=== PATIENT | female | born 1950 | race Caucasian/White ===

== ENCOUNTER 2019-05-21 13:22 | Inpatient (IN) | payer MEDICARE, MEDICAID ==
[~2019-05-21] VITALS: Ht 157.4 cm; Wt 61.2 kg
--- NOTE | 2019-05-21 13:30 | NUR ---
MEDICATIONS REVIEWED WITH PT'S WILLIE. HAD ALL PT'S MEDICATION BOTTLES IN E.D., MED REC UPDATED ACCORDINGLY. PT'S HOME MEDICATIONS, PURSE AND JEWELRY, WITH THE EXCEPTION OF [place], WERE SENT HOME WITH PT'S . VISITING HOURS AND TELEPHONE NUMBER TO UNIT PROVIDED TO .
--- NOTE | 2019-05-21 13:46 | NUR ---
HOSPITALIST NUMBER ONE, , NOTIFIED OF NEW CONSULT FOR MEDICAL MANAGEMENT.
--- NOTE | 2019-05-21 13:48 | NUR ---
MARÍA RAMIREZ a 68 year old F admitted via wheel chair from the EMERGENCY ROOM as a emergency 72 hr. hold admission. Arrived on unit at 1348. ALLERGIES: NKDA. Vital signs are: 97.8-84-18 148/90. 100% ROOM AIR. PT ADMITTED UNDER PINK SLIP. PT DID NOT SIGN ANY ADMISSION PAPERWORK UPON ADMISSION TO THE UNIT, PT EXCEEDINGLY ANXIOUS AND TEARFUL. Admitted under the services of Dr. MIKE HYDEALINA. A search was conducted and hazardous articles were removed. Client was oriented to the unit. EMILY JIMENEZ
[2019-05-21 13:50] VITALS: BP 148/90
[2019-05-21] MEDS ORDERED: VISTARIL25 MG PO (13:52)
[2019-05-21] MEDS ORDERED: CELEXA20 MG PO (13:52)
[2019-05-21] MEDS ORDERED: ZESTRIL10 MG PO (13:53)
[2019-05-21] MEDS ORDERED: LIPITOR10 MG PO (13:54)
[2019-05-21] MEDS ORDERED: ZESTORETIC 20-1 EACH PO (13:54)
[2019-05-21] MEDS ORDERED: SEROQUEL50 MG PO (13:54)
[2019-05-21] MEDS ORDERED: NAMENDA10 MG PO (13:55)
[2019-05-21] MEDS ORDERED: NAMENDA-5 PO (13:55)
[2019-05-21] MEDS ORDERED: REMERON15 M2 PO (13:55)
--- NOTE | 2019-05-21 15:00 | NUR ---
PT IS ALERT AND ORIENTED TO PERSON, PLACE AND YEAR. CONFUSION NOTED. PT STATES IT IS "2019" AND THEN STATES IT IS APRIL. PT TEARFUL AT TIMES THINKING SHE IS MISSING THE FAM HOLIDAY AT HOME WITH HER FAMILY. PT STATES "I HAVE WRAPPED GIFTS ALL OVER MY HOUSE AND I DON'T EVEN REMEMBER WHAT IS IN THEM" REORIENTATION PROVIDED. SHORT TERM AND CARE HOME MEMORY GAPS NOTED. RESPS EASY AND EVEN ON ROOM AIR. MOOD APPEARS DEPRESSED WITH SAD AFFECT. PT VERY QUICKLY BECOMES VERY ANXIOUS AND TEARFUL. SLIGHTY AGITATED AT BEING IN THE HOSPITAL. PT DECLINED TO SIGN ANY ADMISSION PAPERWORK OR COMPLETE MINI MENTAL EXAM D/T ANXIETY AND CRYING. PT NOTED WITH DISORGANIZED THOUGHTS AND FLIGHT OF IDEAS. UNABLE TO COMPLETE A TRAIN OF THOUGHT BEFORE MOVING ONTO THE NEXT SUBJECT. PT STATES "I HAVE ALZHEMIERS SO I DON'T DRIVE ANYMORE". AT TIMES THROUGHOUT ADMISSION PROCESS PT GIVES IRRELEVANT ANSWERS TO QUESTIONS ASKED. PT APPEARS PARANOID AND ANXIOUS, AUDITORY AND VISUAL HALLUCINATIONS QUESTIONABLE PT STATES SHE SEES AND HEARS KIDS LIVING IN HER DAUGHTER'S OLD BEDROOM AND KITCHEN AT HER HOME. PT STATES SHE CALLED THE POLICE ON THESE KIDS LAST NIGHT BECAUSE THEY STEAL FROM HER PURSE AND PLAY OUTSIDE IN THE SUMMER. PT STATES THESE "KIDS" HAVE SET UP FUTONS IN HER DAUGHTER'S TEENAGE BEDROOM AND STATES THE KIDS "GO TO [place] ON SATURDAYS TO HAVE FUN" AND PT STATES "BUT I DON'T KNOW ANYTHING ABOUT THAT". PT THEN BECAME TEARFUL AND STATES "I CAN'T DO THIS ANYMORE. IF I HAVE TO GET AN FRUIT PICKER, I WILL". PT FREQUENTLY LOOKING OVER HER SHOULDER AND OUT INTO THE HALLWAY WITH ANY NOISES HEARD. DURING ADMISSION INTERVIEW IN RESPONSE TO THE QUESTION "DO YOU FEEL ITS WONDERFUL TO BE ALIVE NOW?" PT ANSWERED "NO, BECAUSE I'M ALWAYS FIGHTING WITH THE [employer] CARE TECHNICIAN ABOUT MY PARENTS PHONE. THEY TOOK THEIR PHONE AWAY. ARE YOU GOING TO GIVE ME SOME RICE?" PT'S PARENTS ARE PER . PT FREQUENTLY ASKING IF HER WILLIE CAN COME AND SEE HER, MADE AWARE OF VISTING HOURS. PT THEN ASKS THE SAME QUESTIONS AGAIN A SHORT TIME LATER. NO ACUTE DISTRESS NOTED. PT ORIENTED TO ROOM AND CALL [facility]. AMBULATORY WITH STEADY GAIT. REFER TO [facility] ADMISSION FLOWSHEET FOR FURTHER DOCUMENTATION.
--- NOTE | 2019-05-21 17:07 | NUR ---
FLU VACCINE GIVEN TO RIGHT DELTOID AT THIS TIME, PT AFEBRILE, PT TOLERATED WELL.
--- NOTE | 2019-05-21 18:08 | NUR ---
PT CONFUSED, HAS ASKED STAFF SEVERAL TIMES "HAVE YOU HEARD ANYTHING FROM THE ELEVATOR?" "WHEN IS MY GOING TO COME AND PICK ME UP". REORIENTATION PROVIDED, EFFECTIVE FOR SHORT PERIODS.
[2019-05-21 19:38] VITALS: BP 150/80
--- NOTE | 2019-05-21 19:44 | NUR ---
24 HR chart check completed.
--- NOTE | 2019-05-21 21:07 | NUR ---
P-ANXIETY, SHORT TERM MEMORY DEFICITS, CONFUSION I-PROVIDE EMOTIONAL SUPPORT, ADMINISTER MEDS, MONITOR SLEEP R-PT IS MOSTLY PLEASANT. MAINTAINS GOOD EYE CONTACT. ALERT & ORIENTED X4 BUT DOES HAVE MEMORY GAPS. DID VOICE FEAR OF "MY ALZHEIMERS". INCREASED ANXIETY AT TIMES WHEN DISCUSSING HER . WAS WORRIED IF HE MADE IT HOME OR NOT & FORGOT THAT STAFF HAD ALREADY CALLED & LEFT A MESSAGE. SPOKE FONDLY OF HER FAMILY. HER DID CALL & SPOKE WITH HER TONIGHT. NO SIGNS/SYMPTOMS OF SENSORY DISTURBANCE NOTED. AMBULATES INDEPENDENTLY WITH A STEADY GAIT. ABLE TO MAKE NEEDS KNOWN. ATE SNACK. COMPLIANT WITH MEDICATIONS. P-CONTINUE TO MONITOR & PROVIDE PHYSICAL & EMOTIONAL SUPPORT NEEDED.
[2019-05-22 06:13] LABS: BASO # 0.1 10*3/uL (0.0-0.1); BASO % 0.7 % (0.0-1.0); EOS # 0.2 10*3/uL (0.0-0.4); EOS % 2.4 % (1.0-4.0); HEMATOCRIT 34.9 % (37.0-47.0); HEMOGLOBIN 11.3 g/dl (12.0-16.0); LYMPH % 48.4 % (27.0-41.0); MEAN CELL VOLUME 91.4 fl (81.0-99.0); MEAN CORPUSCULAR HGB 29.6 pg (27.0-31.0); MEAN CORPUSCULAR HGB CONC 32.4 g/dl (33.0-37.0); MEAN PLATELET VOLUME 10.7 fl (9.6-12.3); MONO # 0.7 10*3/uL (0.1-1.0); MONO % 8.4 % (3.0-9.0); NEUT # 3.3 10*3/uL (2.3-7.9); NEUT % 39.9 % (47.0-73.0); PLATELET COUNT AUTOMATED 293 10*3/uL (130-400); RED BLOOD COUNT 3.82 10*6/uL (4.10-5.10); WHITE BLOOD COUNT 8.2 10*3/uL (4.8-10.8)
[2019-05-22 06:29] LABS: ALBUMIN 3.2 gm/dl (3.1-4.5); ALKALINE PHOSPHATASE 148 U/L (45-117); BUN 18 mg/dl (7-24); CHLORIDE 107 mmol/L (98-107); CHOLESTEROL 146 mg/dL (<200); CREATININE 0.92 mg/dL (0.55-1.02); HDL CHOLESTEROL 62 mg/dl (40-60); LDL CHOLESTEROL 74 mg/dL (9-159); POTASSIUM 3.8 mmol/L (3.5-5.1); SGOT/AST 21 IU/L (3-35); SGPT/ALT 28 U/L (12-78); SODIUM 145 mmol/L (136-145); TOTAL PROTEIN 6.5 gm/dL (6.4-8.2); TRIGLYCERIDES 48 mg/dl (<150); VLDL CHOLESTEROL 10 mg/dL (6-40)
[2019-05-22 07:23] LABS: VITAMIN D, 25-HYDROXY 29.4 ng/mL (30-100)
[2019-05-22 07:30] VITALS: BP 112/72
--- NOTE | 2019-05-22 07:33 | NUR ---
PT RESTING QUIETLY IN BED WITH EYES CLOSED, RESPS EASY AND EVEN ON ROOM AIR. MENTAL HEALTH WORKER WILL ASSIST PT TO DINING ROOM FOR BREAKFAST.
--- NOTE | 2019-05-22 07:55 | NUR ---
PHYSICAL THERAPY Screen received as well as orders for PT will follow thank you Ally Mckenzie PT
--- NOTE | 2019-05-22 08:07 | NUR ---
Nursing screen and occupational therapy referral received. Thank you. Jannette Bennett OTR/l
--- NOTE | 2019-05-22 11:42 | NUR ---
AM GROUP PT ATTENDED MORNING GROUP THERAPY AND PARTICIPATED RELUCTANTLY IN THE ART PROJECT. PT IS VERY CONFUSED AND IS UNABLE TO ANSWER QUESTIONS IN PROPER CONTEXT. PT EXHIBITED NO AGITATION OR PARANOIA WHILE IN GROUP.
--- NOTE | 2019-05-22 13:46 | NUR ---
Family meeting held with pt's Gold and this telegraphic typewriter repairer. Pt was also present for a portion of the meeting. Gold provided further history of pt's behaviors. He also confirmed that pt was in the [facility] psychiatric unit approximately one year ago due to paranoid delusions and hallucinations. Discussed discharge plan. Gold stated that his daughter Amelia would be calling this telegraphic typewriter repairer to further discuss. Gold shared that Amelia is wanting pt to discharge to a locked dementia unit in the [facility] to be closer to Amelia. Gold is unsure of this plan but continues to consider that option along with possible referral to [facility].
--- NOTE | 2019-05-22 15:30 | NUR ---
Patient observed ambulating on the [facility] [facility] unit independently, pushing a patient in a wheelchair until nursing asked patient not to do so. [facility] aide reports that patient was independent in all ADLs. OTR will reassess at a later date to establishe consistant performance. Jannette Bennett OTR/L
--- NOTE | 2019-05-22 15:39 | NUR ---
PM GROUP PT ATTENDED AFTERNOON GROUP THERAPY AND PARTICIPATED BY PAINTING A WATERCOLOR AND PLAYING CARDS WITH A PEER. PT IS VERY CONFUSED AND CANNOT RETAIN A SIMPLE DIRECTION GIVEN A SECOND AGO. PT WAS MAKING BIZARRE STATEMENTS THAT HAD NOTHING TO DO WITH THE TOPIC. PT EXHIBITED NO AGITATION AND EXPRESSED NO PARANOID DELUSIONS WHILE IN GROUP.
--- NOTE | 2019-05-22 16:07 | NUR ---
P- CONFUSION, ANXIETY, IRRITABLE AT TIMES UPON REDIRECTION. NO AGGRESSIVE BEHAVIORS. I- ORIENTATION, MOOD AND BEHAVIORS ASSESSED. ASSESSED PT FOR SI/HI, INTENT OR PLAN. ASSESSED PT FOR S/S HALLUCINATIONS, PARANOIA AND/OR DELUSIONS. MEDICATIONS ADMINISTERED PER PHYSICIAN'S ORDERS. ASSISTANCE WITH ADL CARE PROVIDED NEEDED. ENCOURAGED PT TO ATTEND AND PARTICIPATE IN [facility] GROUPS AND ACTIVITIES. R- PT IS ALERT AND ORIENTED TO PERSON AND PLACE. APPROXIMATE TIME. NOT ORIENTED TO SITUATION. CONFUSION NOTED. MEMORY GAPS NOTED. RESPS EASY AND EVEN ON ROOM AIR. MOOD APPEARS DEPRESSED, ANXIOUS, PT TEARFUL AT TIMES, PT BELIEVES HER IS STUCK IN THE ELEVATOR AT TIMES AND OTHER TIMES PT BELIEVES SHE IS HERE TO VISIT HER WHO IS ADMITTED TO THE HOSPITAL. PT BECOMES SLIGHTLY IRRITABLE UPON ATTEMPTS TO REDIRECT. PT STATES SHE WANTS TO GO HOME. NO PHYSICAL AGGRESSION DISPLAYED. REORIENTATION EFFECTIVE FOR ONLY SHORT PERIODS OF TIME. PT DENIES SI/HI, INTENT OR PLAN. PT DENIES HALLUCINATIONS, NO RESPONSE TO INTERNAL STIMULI. NO PARANOIA OR DELUSIONS NOTED. MED COMPLIANT WITHOUT DIFFICULTY. PT IS AMBULATORY WITH STEADY GAIT, AMBULATES AD KARYNA. NO DISTRESS NOTED. P- PLAN TO CONTINUE CURRENT TREATMENT, CONTINUE TO MONITOR MOOD AND BEHAVIORS, PROVIDE APPROPRIATE REORIENTATION, REDIRECTION AND 1:1 NEEDED. CONTINUE TO ENCOURAGE MEDICATION COMPLIANCE WELL GROUP ATTENDANCE AND PARTICIPATION.
--- NOTE | 2019-05-22 18:37 | NUR ---
SHIFT CHART CHECK COMPLETED.
[2019-05-22 19:54] VITALS: BP 135/69
--- NOTE | 2019-05-22 21:30 | NUR ---
Patient alert and oriented x4 but has memory gaps noted. Patient's mood is pleasant and cooperative. No overt s/s of any hallucinations noted at this time. Patient compliant with HS medications without any difficulty. Provided 1:1 for emotional support. Redirected/reoriented when needed. Plan to continue to encourage medication compliance and continue to provide emotional support. Also continue to redirect/reorient when needed/appropriate. Q 15 minute safety checks continued and maintained. See [facility] flowsheet for further documentation.
--- NOTE | 2019-05-23 00:36 | NUR ---
24 HR chart check completed.
--- NOTE | 2019-05-23 05:41 | NUR ---
Patient slept approx. 6 hours throughout shift. Q 15 minute safety checks continued and maintained.
[2019-05-23 07:35] VITALS: BP 120/65
--- NOTE | 2019-05-23 12:06 | NUR ---
AM GROUP/EXERCISE/MUSIC/BINGO PT SHOWERING WHEN GROUP STARTED. MHW ENCOURAGED PT TO ATTEND/PARTICIPATE, BUT PT CHOSE TO REMAIN IN ROOM AT THIS TIME. PT WILL CONTINUE TO BE ENCOURAGED TO ATTEND AND PARTICIPATE IN FUTURE GROUP SESSIONS.
--- NOTE | 2019-05-23 12:07 | NUR ---
DR FIELD ON UNIT TO ASSESS PT, UPDATE PROVIDED.
--- NOTE | 2019-05-23 12:31 | NUR ---
P: PT ISOLATIVE TO ROOM THROUGHOUT THE DAY, WILL COME OUT FOR MEALS ONLY, AND THEN RETURNS TO ROOM. PT MOOD IS DEPRESSED. PT TEARFUL I: PROVIDE EMOTIONAL SUPPORT AND 1:1 FOR PT TO VOICE FEELINGS, ENCOURAGE MED COMPLIANCE AND PROVIDE MED EDUCATION, ENCORUAGE GROUP PARTICIPATION AND SOCIALIZATION. R: PT ALERT TO PERSON, PLACE AND TIME. CONFUSION AND SHORT TERM MEMORY DEFICITS NOTED. PT MED COMPLIANT WITHOUT DIFFICULTY. PT REMAINS TEARFUL AT TIMES. PT CONTINUES TO ISOLATE TO HER ROOM, WILL COME OUT TO THE QUIET ROOM FOR MEALS AND THEN RETURNS TO HER ROOM. PT AMBULAOTRY THROUGHOUT UNIT, GAIT STEADY. PT CONTINENT OF BOWEL AND BLADDER. PT SHOWERED THIS SHIFT P: MONITOR PT BEHAVIORS ON Q15 MIN SAFETY CHECKS, ENCOURAGE MED COMPLIANCE AND PROVIDE MED EDUCATION, ENCOURAGE GROUP PARTICIPATION AND SOCIALIZATION, PROVIDE EMOTIONL SUPPORT AND 1:1 FOR PT TO VOICE FEELINGS.
--- NOTE | 2019-05-23 15:54 | NUR ---
PM GROUP/MUSICAL/CRAFT PT ISOLATIVE TO ROOM AT THIS TIME. PT WILL CONTINUE TO BE ENCOURAGED TO ATTEND AND PARTICIPATE IN FUTURE GROUP SESSIONS.
[2019-05-23 19:44] VITALS: BP 120/61
--- NOTE | 2019-05-23 21:17 | NUR ---
Patient alert and oriented x4 but has memory gaps noted. Patient's mood is pleasant and cooperative. Patient isolative to self in room. Patient said "do see that stink bug on the ceiling,I am afraid it is going to fall on me". This nurse told patient that there was no stink bug seen on the ceiling. Patient then said "it is four rows down from circular vent on ceiling." There was no stink bug seen. Attempted to redirect/reorient patient and patient did finally redirect. Patient compliant with HS medications without any difficulty. Provided 1:1 for emotional support. Redirect/reorient when needed. Plan to continue to encourage medication compliance and continue to provide emotional support. Also continue to redirect/reorient when needed/appropriate. Q 15 minute safety checks continued and maintained. Will continue to monitor moods/behaviors. See [facility] flowsheet for further documentation.
--- NOTE | 2019-05-24 00:23 | NUR ---
24 HR chart check completed.
--- NOTE | 2019-05-24 05:59 | NUR ---
Patient slept approx. 7 hours throughout shift. Q 15 minute safety checks continued and maintained.
[2019-05-24 07:47] VITALS: BP 150/87
--- NOTE | 2019-05-24 10:32 | NUR ---
P: PT ISOLATIVE TO ROOM. PT DEPRESSED, ANXIOUS, IRRITABLE AND HOPELESS/HELPLESS. PT TEARFUL. PT REFUSED BREAKFAST. I: PROVIDE EMOTIONAL SUPPORT AND 1:1 FOR PT TO VOICE FEELINGS, ENCOURAGE MED COMPLIANCE AND PROVIDE MED EDUCATION, ENCOURAGE GROUP PARTICIPATION AND SOCIALIZATION, ENCOURAGE PO INTAKE. R: PT ALERT TO PERSON, PLACE AND TIME, CONFUSION AND SHORT TERM MEMORY DEFICITS NOTED AT TIMES. PT MED COMPLIANT WITHOUT DIFFICULTY, MED EDUCATION PROVIDED. PT AMBULATORY THROUHGOUT UNIT, GAIT STEADY. PT CONTINENT OF BOWEL AND BLADDER. PT CAME TO THE DINING ROOM AND CONSUMED BREAKFAST WITH ENCOURAGEMENT. PT PARTICIPATED IN AM GROUP WITH ENCOURAGEMENT. PT DENIES ANY SUICIDAL THOUGHTS. NO HALLUCINATIONS OR DELUSIONS NOTE. P: MONITOR PT BEHAVIORS ON Q15 MIN SAFETY CHECKS, ENCOURAGE MED COMPLIANCE AND PROVIDE MED EDUCATION, CONTINUE TO ENCOURAGE GROUP PARTICIAPTION AND SOCIALZATION, PROVIDE EMOTIONAL SUPPORT AND 1:1 FOR PT TO VOICE FEELINGS
--- NOTE | 2019-05-24 10:48 | NUR ---
DR. FIELD ON UNIT TO ASSESS PT, UPDATE PROVIDED.
--- NOTE | 2019-05-24 12:38 | NUR ---
AM GROUP/EXERCISE/MUSIC TRIVIA/ART PT ATTENDED AND PARTICIPATED IN ALL GROUP ACTIVITY. PT PLEASANT AND ON TASK WITH NO PARANOIA OR DELUSIONS EXPRESSED AT THIS TIME. PT WILL CONTINUE TO ATTEND AND PARTICIPATE IN FUTURE GROUP SESSIONS.
--- NOTE | 2019-05-24 16:05 | NUR ---
P: PT DELUSIONAL THINKING SHE SAW HER DAUGHTER IN THE BATHROOM HAVING A BOWEL MOVEMENT ALL OVER THE SINK AND TOILET. PT TEARFUL AND CONFUSED AT THIS TIME. I: STAFF PROVIDED EMOTIONAL SUPPORT AND 1:1 FOR PT TO VOICE FEELINGS, PROVIDED LOW STIMULATION ENVIRONMENT FOR PT TO CALM, PROVIDED RE-ORIENTATION AND PRESENTED REALITY R: ALL INTERVENTIONS INEFFECTIVE AT THIS TIME, PT REMAINS TEARFUL. PT UNRECEPTIVE TO PRESENTATION OF REALITY AND RE-ORIENTATION, REMAINS DELUSIONAL, WANDERING IN AND OUT OF OTHERS ROOMS LOOKING FOR HER DAUGHTER. P: MONITOR PT BEHAVIORS ON Q15 MIN SAFETY CHECKS, PROVIDE EMOTIONAL SUPPORT AND 1:1 FOR PT TO VOICE FEELINGS, PROVIDE LOW STIMULATION ENVIRONMENT FOR PT TO CALM.
[2019-05-24 20:00] VITALS: BP 143/86
--- NOTE | 2019-05-24 20:15 | NUR ---
24 HR chart check completed.
--- NOTE | 2019-05-25 02:11 | NUR ---
P-ISOLATIVE, MEMORY DEFICITS I-PROVIDE 1:1 FOR EMOTIONAL SUPPORT, ADMINISTER MEDS, MONITOR SLEEP R-MOOD DEPRESSED & ISOLATIVE TO ROOM. STATED THAT SHE IS "OK. TOO MUCH NOISE IN THE DINING ROOM." ALERT & ORIENTED TO PERSON, PLACE, TIME & STATED THAT SHE IS HERE FOR HER ALZHEIMERS. SHORT TERM MEMORY GAPS NOTED. PT VERBAL & STATED, "IT'S TOUGH FORGETTING THINGS. KNOWING I HAVE ALZHEIMERS". REFUSED SNACK. COMPLIANT WITH MEDS. ABLE TO MAKE NEEDS KNOWN. INDEPENDENT. NO BIZARRE STATEMENTS OR DELUSIONS VOICED. P-CONTINUE TO MONITOR & PROVIDE EMOTIONAL SUPPORT NEEDED.
--- NOTE | 2019-05-25 06:17 | NUR ---
PT HAS SLEPT PAST 2314
[2019-05-25 07:58] VITALS: BP 136/86
[2019-05-25 07:59] VITALS: BP 136/86
--- NOTE | 2019-05-25 08:00 | NUR ---
PT AWAKE, ALERT AND VERBAL. FEEDING SELF BREAKFAST IN DINING ROOM WITH PEERS AT THIS TIME. NO DISTRESS NOTED.
--- NOTE | 2019-05-25 08:15 | NUR ---
Treatment Plan meeting was held this a.m. with Dr. Lyon, JOSELIN Johnson, RN, AT and Technical Communication Teacher in attendance. Plan for discharge at the end of the week. Message received that Patient family has requested Referral to [facility]. Will follow with family today.
--- NOTE | 2019-05-25 08:47 | NUR ---
AND ARASH MEDICAL RESEARCH TECH ON UNIT TO SEE PT AT THIS TIME. UPDATE GIVEN.
--- NOTE | 2019-05-25 11:44 | NUR ---
AM GROUP PT ATTENDED MORNING GROUP THERAPY SITTING AT THE BACK OF THE ROOM WITH EYES CLOSED. PT IS PLEASANTLY CONFUSED. PT CHOSE NOT TO PARTICIPATE. PT EXPRESSED NO PARANOID IDEATIONS OR HALLUCINATIONS WHILE IN GROUP
--- NOTE | 2019-05-25 11:50 | NUR ---
PASRR completed online in [place]. Requires Level two Review. Faxed Supporting Documentation to [facility] .
--- NOTE | 2019-05-25 12:54 | NUR ---
Spoke with pt's daughter Amelia in regards to pt's discharge plan. Per previous conversation with pt's Gold, Amelia is to be involved in the discharge plan. Amelia shared that pt's is struggling with the thought of pt not returning to their home. However, Amelia stated that Gold has been caring for pt for 2 1/2 years and that pt is primarily delusional about Gold, which has caused much stress for both pt and Gold. Amelia is wanting pt to move temporarily to a in [facility]. This will allow Gold time to make plans to move to that vicinity as well with the possibility of pt returning home with Gold with support from Amelia and her family.
--- NOTE | 2019-05-25 12:56 | NUR ---
P- CONFUSED, POOR ST MEMORY, TEARFUL AT TIMES I- ORIENTATION, MOOD AND BEHAVIORS ASSESSED. ASSESSED PT FOR SI/HI, INTENT OR PLAN. ASSESSED PT FOR S/S HALLUCINATIONS, PARANOIA AND/OR DELUSIONS. MEDICATIONS ADMINISTERED PER PHYSICIAN'S ORDERS. ENCOURAGED PT TO ATTEND AND PARTICIPATE IN [facility] GROUPS AND ACTIVITIES. R- PT IS ALERT AND ORIENTED TO PERSON AND PLACE, UNABLE TO STATE DATE, TIME OR SITUATION. CONFUSION NOTED. POOR ST MEMORY NOTED. RESPS EASY AND EVEN ON ROOM AIR. MOOD APPEARS DEPRESSED, AFFECT SAD AT TIMES. SPEECH IS SOFT, COHERENT, ABLE TO MAKE NEEDS KNOWN WITHOUT DIFFICULTY. PT DENIES SI/HI, INTENT OR PLAN. PT DENIES HALLUCINATIONS, NO RESPONSE TO INTERNAL STIMULI NOTED. NO PARANOIA OR DELUSIONS NOTED. PT CONTINUES TO HAVE PERIODS OF TEARFULNESS AT TIMES. PT CRYING THIS MORNING WHILE USING THE BATHROOM, STATED "I'M HAVING DIARRHEA AND IT'S RUNNING DOWN MY LEGS" NO DIARRHEA NOTED. MENTAL HEALTH WORKER REPORTS PT HAD ONE SOFT FORMED BM THIS AM. PT ALSO TEARFUL DURING INTERVIEW WITH THIS RN, PT STATES "I JUST MISS MY AND KIDS AND I CAN'T PINPOINT EXACTLY WHATS GOING ON HERE". REORIENTATION AND EMOTIONAL SUPPORT PROVIDED. PT IS MED COMPLIANT WITHOUT DIFFICULTY. PT ATTENDED MORNING GROUP BUT SAT IN THE CORNER ISOLATED FROM PEERS AND DID NOT PARTICIPATE. P- PLAN TO CONTINUE CURRENT TREATMENT, CONTINUE TO MONITOR MOOD AND BEHAVIORS, PROVIDE APPROPRIATE REORIENTATION, REDIRECTION AND 1:1 NEEDED. CONTINUE TO ENCOURAGE MEDICATION COMPLIANCE WELL GROUP ATTENDANCE AND PARTICIPATION.
--- NOTE | 2019-05-25 14:45 | NUR ---
Occupational therapy orders received and chart reviewed. Patient was in group therapy upon arrival. Will follow up with patient when appropriate. Thank you. Tracey Miner OTR/L
--- NOTE | 2019-05-25 14:46 | NUR ---
Referral to [facility] at [facility] for LTC.
--- NOTE | 2019-05-25 15:42 | NUR ---
PM GROUP PT ATTENDED AFTERNOON GROUP THERAPY AND PARTICIPATED IN ALL ACTIVITIES. PT IS PLEASANTLY CONFUSED. PT MAKES REMARKS TOTALLY OUT OF CONTEXT. PT EXPRESSED NO PARANOID IDEATIONS NOT ANY DELUSIONS WHILE IN GROUP
[2019-05-25 19:25] VITALS: BP 134/75
--- NOTE | 2019-05-25 20:09 | NUR ---
24 HR chart check completed.
--- NOTE | 2019-05-25 20:37 | NUR ---
EVENING GROUP PT CHOSE NOT TO ATTEND/PARTICIPATE BUT TO REMAIN IN BED AT THIS TIME. PT WILL CONTINUE TO BE ENCOURAGED TO ATTEND AN DPARTICIPATE IN FUTURE GROUP SESSIONS.
--- NOTE | 2019-05-25 22:52 | NUR ---
P-ISOLATIVE, MEMORY DEFICITS I-PROVIDE 1:1 FOR EMOTIONAL SUPPORT, ADMINISTER MEDS, MONITOR SLEEP R-MOOD DEPRESSED WITH SAD FACIES. PT STATES, "I FEEL OK." SAT IN THE DINING ROOM QUIETLY. STATED THAT SHE IS "OK". ALERT & ORIENTED TO PERSON, PLACE & TIME. STATED "I DON'T KNOW WHY I'M HERE. SHORT TERM MEMORY GAPS NOTED. ATE SNACK. COMPLIANT WITH MEDS. ABLE TO MAKE NEEDS KNOWN. INDEPENDENT. NO BIZARRE STATEMENTS OR DELUSIONS VOICED. P-CONTINUE TO MONITOR & PROVIDE EMOTIONAL SUPPORT NEEDED.
--- NOTE | 2019-05-26 05:39 | NUR ---
PT HAS SLEPT PAST 2300.
[2019-05-26 07:59] VITALS: BP 148/84
--- NOTE | 2019-05-26 09:20 | NUR ---
Occupational therapy orders received and chart reviewed. Per chart review and discussion from nursing, patient is from home where her assists throughout the day. Patient demonstrated intact bilateral upper extremity ROM, good safety awareness, independent ADLs, functional mobility, and transfers. Per discussion with patient and nursing, she has been independently walking throughout unit and completing ADLs. Patient to be discharged from OT services at this time. Thank you for the referral. Tracey Miner, OTR/L
--- NOTE | 2019-05-26 11:44 | NUR ---
AM GROUP/EXERCISE AND GAMES PT DID NOT ATTEND MORNING GROUP THERAPY. PT WAS IN BED RESTING.
--- NOTE | 2019-05-26 14:40 | NUR ---
Met with pt and her Gold. Discussed [facility] and provided education about the document. Confirmed with pt that she understood what she was signing. Assisted pt and her Gold with completing [facility] documents. Placed copy of pt's on her chart.
--- NOTE | 2019-05-26 14:46 | NUR ---
Shift chart check completed.
--- NOTE | 2019-05-26 15:37 | NUR ---
PM GROUP/BINGO PT DID NOT ATTEND AFTERNOON GROUP THERAPY. PT WAS IN BED RESTING.
--- NOTE | 2019-05-26 16:01 | NUR ---
Received Call from Tracey at [facility]. Pt. accepted Pending Level of Care. Level of Care submitted to [facility].
--- NOTE | 2019-05-26 17:53 | NUR ---
DEPAKOTE 250 MG ADMINISTERED AT THIS TIME
[2019-05-26 20:03] VITALS: BP 127/72
--- NOTE | 2019-05-26 21:52 | NUR ---
Patient alert and oriented person,place and time but has memory gaps noted. Patient's mood is pleasant and cooperative. Patient sitting in diningroom but isolative to self. Patient compliant with HS medications without any difficulty. Provided 1:1 for emotional support. Patient answered questions regarding how her day was patient said " it was okay. I was wondering if you could call my and ask him when he is planning to come in and see me." This nurse told patient that her was just here during visiting hours. Patient then said "oh,he was. I didn't realize he had come in." Redirect/reorient when needed. Plan to continue to encourage medication compliance and continue to provide emotional support. Also continue to redirect/reorient when needed/appropriate. Q 15 minute safety checks continued and maintained. Will continue to monitor moods/behaviors. See [facility] flowsheet for further documentation.
--- NOTE | 2019-05-27 00:13 | NUR ---
24 HR chart check completed.
--- NOTE | 2019-05-27 05:53 | NUR ---
Patient slept approx. 4.5 hours throughout shift with a few awakenings. Q 15 minute safety checks continued and maintained.
--- NOTE | 2019-05-27 08:15 | NUR ---
Treatment Plan meeting was held with Dr. Lyon, JOSELIN Johnson, RN, AT, STAFF CLIMATE SCIENTIST-S and Battalion Fire Chief in attendance. Plan for discharge Saturday. Pt. is accepted at [facility]. Level of Care Pending.
[2019-05-27 08:29] VITALS: BP 118/71; BP 132/74
--- NOTE | 2019-05-27 09:59 | NUR ---
Level of Care received from [facility]. Pt. is approved for [facility].
--- NOTE | 2019-05-27 10:01 | NUR ---
Spoke with pt's daughter Amelia Correa and provided her with an update. Amelia stated that she can transport pt to [facility] on Saturday at 12:00.
--- NOTE | 2019-05-27 11:41 | NUR ---
AM GROUP PT ATTENDED AND PARTICIPATED IN ALL MORNING GROUP ACTIVITIES. PT IS VERY CONFUSED AND NEEDS SIMPLE STEP BY STEP INSTRUCTION. PT MAKES REMARKS THAT ARE NO WITHIN CONTEXT OF THE CONVERSATION OR QUESTION. PT EXHIBITED NO AGITATION WHILE IN GROUP
--- NOTE | 2019-05-27 13:15 | NUR ---
Spoke with Pallavi at [facility]. Advised of plans to discharge Saturday and that Level of Care had returned. Advised That patient daughter would pick Pt. up at 12:00 and transport via personal Vehicle. Faxed Clinical Updates and Copy of Level of Care to [facility].
--- NOTE | 2019-05-27 15:41 | NUR ---
PM GROUP/NIGEL A SNOWMAN PT DID NOT ATTEND AFTERNOON GROUP THERAPY. PT WAS IN BED NAPPING
[2019-05-27 20:30] VITALS: BP 138/72
--- NOTE | 2019-05-28 03:23 | NUR ---
P-CONFUSED, RESTLESS, PT PACING HALLWAY LOOKING FOR . I-REORIENT AND PRESENT REALITY. PROVIDE 1:1 WITH THERAPEUTIC INTERVENTIONS. ENCOURAGE MEDICATION COMPLIANCE AND EDUCATE. MONITOR SLEEP. R-"IM WAITING FOR MY TO COME". PT ALERT TO PERSON, APPROX TO PLACE, CONFUSED. PT REQUIRES FREQUENT REORIENTATION THROUGHOUT SHIFT. EASILY REDIRECTABLE WHEN NEEDED. PT MEDICATION COMPLIANT WITHOUT DIFFICULTY, UNABLE TO EDUCATE DUE TO COGNITION. PT DENIES SI/HI, HALLUCINATIONS, OR PAIN. NO NOTED RESPONDING TO INTERNAL STIMULI. PT AMBULATORY WITH A STEADY GAIT, CONTINENT OF BOWEL AND BLADDER, ABLE TO MAKE NEEDS KNOWN. PT REQUESTING QUIETLY WITH EYES CLOSED AT THIS TIME. NO SIGNS OR SYMPTOMS OF DISTRESS NOTED. P-CONTINUE TO MONITOR MOOD AND BEHAVIORS. PROVIDE 1:1 WITH SUPPORT. REORIENT AND PRESENT REALITY NEEDED. ENCOURAGE MEDICATION COMPLIANCE. MAINTAIN Q 15 MIN CHECKS.
--- NOTE | 2019-05-28 07:00 | NUR ---
PATIENT OBSERVED ON Q 15 MIN CHECKS TO HAVE SLEPT APPROX 5 HOURS THROUGHOUT THE NIGHT. NO SIGNS OR SYMPTOMS OF DISTRESS NOTED.
[2019-05-28 07:50] VITALS: BP 136/86
--- NOTE | 2019-05-28 08:15 | NUR ---
Treatment Plan meeting was held with Dr. Lyon, RN, AT, DYE MACHINE OPERATOR-S and Chief Investment Officer in attendance. Plan for discharge Saturday. Pt. will discharge to [place] at Discharge. Daughter to transport with brick picker time 12:00 p.m.
--- NOTE | 2019-05-28 11:57 | NUR ---
AM GROUP AM GROUP WAS SHORTENED DUE TO NEW PT ASSESSMENTS. PT WAS PRESENT AND SEATED AT THE BACK OF THE ROOM IN A COMFY CHAIR WATCHING THE MOVIE. PT WAS QUIET.
--- NOTE | 2019-05-28 15:25 | NUR ---
Confirmed with pt's daughter Amelia Correa that she will be at [facility] between 12- 12:30 tomorrow to transport pt to [facility].
--- NOTE | 2019-05-28 15:46 | NUR ---
PHYSICAL THERAPY Pt seen on U admit with intermittent explosive disorder from home with family. Presently pt transfering indepenently from bed and chair in activity room. Amb in hallway with no AD slow but steady gait > 200 ft. No LOB. Pt has no complaints. Staff has no concerns regarding functional status. Screen only at this time no skilled PT need, will discontinue order, thank you Ally Mckenzie PT
--- NOTE | 2019-05-28 15:57 | NUR ---
PM GROUP PT ATTENDED AND PARTICIPATED IN AFTERNOON GROUP THERAPY. PT WAS FOCUSED AND ON TASK. PT EXPRESSED NO DELUSIONAL IDEATIONS WHILE IN GROUP. PT IS PLEASANTLY CONFUSED.
--- NOTE | 2019-05-28 16:15 | NUR ---
P: ST/LT MEMORY, DELUSIONS, PARANOIA, FLIGHT OF IDEAS, ISOLATIVE I: PRESENT REALITY, REDIRECT, MONITOR FOR DELUSIONS, ANXIETY, PARANOID THOUGHT PROCESS, ASSIST PT IN CALMING TECHNIQUES AND FOCUS ON GOALS. ENCOURAGE INTERACTIONS WITH PEERS AND STAFF R: PT ACKNOWLEDGES SHE HAS MEMORY PROBLEMS, HAS DIFFICULTY WITH ALF REDIRECTION, PLEASANT WITH IT AT THIS TIME. NO PARANOID THOUGHTS, DELUSIONS, NO SI/HI OR ANXIETY NOTED. SHE HAS PACED THE HALLWAY THIS AFTERNOON WAITING ON TO COME AND VISIT. PT LAUGHING WITH STAFF, WATCHING MOVIES, PARTICIPATING IN GROUP ACTIVITIES. PT REQUIRED STAFF TO GUIDE HER TO PROVIDE HOC FOR HERSELF P: CONTINUE TO ASSIST PT WITH ORIENTATION, REDIRECTION AND ESTABLISHING A ROUTINE. ENCOURAGE INTERACTION, MEDICATION COMPLIANCE, WILL CONTINUE TO MONITOR 15 MIN CHECKS, MOODS AND BEHAVIORS AT THIS TIME
[2019-05-28 20:08] VITALS: BP 136/82
--- NOTE | 2019-05-29 00:43 | NUR ---
P-CONFUSED, PARANOID DELUSIONS I-PRESENT REALITY AND REORIENT WITH REASSURANCE OF SAFETY. PROVIDE 1:1 WITH THERAPEUTIC INTERVENTIONS. ENCOURAGE MEDICATION COMPLIANCE AND EDUCATE. MONITOR SLEEP. R-"THERE ARE LEOPARDS UNDER MY BED, THEY ARE GOING TO ATTACK EVERYONE". PT RECEPTIVE TO INTERVENTIONS WHEN PRESENTED. PT ALERT AND ORIENTED TO SELF, CONFUSED. MEMORY DEFICITS NOTED PT REQUIRES FREQUENT REORIENTATION THROUGHOUT SHIFT. PT MEDICATION WITHOUT DIFFICULTY AFTER REVIEW. PT DENIES SI/HI, HALLUCINATIONS, AND PAIN. PT INDEPENDENT IN ADLS WITH PROMPTING, AMBULATORY WITH STEADY GAIT, CONTINENT OF BOWEL AND BLADDER. PT RESTING QUIETLY AT THIS TIME. NO SIGNS OR SYMPTOMS OF DISTRESS NOTED. P-CONTINUE TO PRESENT REALITY AND REORIENT. REASSURE OF SAFETY. PROVIDE 1:1 WITH THERAPEUTIC INTERVENTIONS. ENCOURAGE MEDICATION COMPLIANCE. MAINTAIN Q 15 MIN CHECKS.
--- NOTE | 2019-05-29 05:37 | NUR ---
24 HOUR CHART CHECK COMPLETED.
--- NOTE | 2019-05-29 05:59 | NUR ---
PATIENT SLEPT APPROX 3 HOURS INTERRUPTED THIS SHIFT.
[2019-05-29 08:00] VITALS: BP 137/84
--- NOTE | 2019-05-29 08:15 | NUR ---
Treatment Plan meeting was held with JOSELIN Johnson, RN, AT, HOOK PULLER-S and Delicatessen Goods Stock Clerk in attendance. Plan for discharge today. Pt. will discharge to [facility].
[2019-05-29] MEDS ORDERED: DIVALPROEX SOD250 MG PO (09:26)
[2019-05-29] MEDS ORDERED: EXELON13.3 MG/21 T (09:26)
[2019-05-29] MEDS ORDERED: MEMANTINE HCL10 MG PO (09:26)
[2019-05-29] MEDS ORDERED: DIVALPROEX SOD125 MG PO (09:26)
[2019-05-29] MEDS ORDERED: VITAMIN D5000 UNI1 PO (09:26)
--- NOTE | 2019-05-29 10:00 | NUR ---
PT IS ALERT AND ORIENTED TO PERSON ONLY. OTHERWISE CONFUSED. ST MEMORY GAPS NOTED. RESPS EASY AND EVEN ON ROOM AIR. MOOD APPEARS STABLE, AFFECT APPROPRIATE. SPEECH IS WNL AND COHERENT, ABLE TO MAKE NEEDS KNOWN WITHOUT DIFFICULTY. PT DENIES SI/HI, INTENT OR PLAN. PT DENIES HALLUCINATIONS, NO RESPONSE TO INTERNAL STIMULI NOTED. NO PARANOIA OR DELUSIONS NOTED. PT IS CALM AND COOPERATIVE. INTERACTS WELL WITH STAFF AND PEERS. AMBULATORY WITH STEADY GAIT. CONTINENT OF BOWEL AND BLADDER. FEEDS SELF, GOOD APPETITE DISPLAYED WITH ADEQUATE FLUID INTAKE. MED COMPLIANT WITHOUT DIFFICULTY. NO AGGRESSIVE BEHAVIORS DISPLAYED. NO DISTRESS NOTED. PLAN TO CONTINUE CURRENT TREATMENT AND PREPARE PT FOR HOSPITAL DISCHARGE THIS DATE.
--- NOTE | 2019-05-29 10:27 | NUR ---
AND TEAM ON UNIT TO SEE PT AT THIS TIME. MADE AWARE OF DISCHARGE FOR TODAY AT NOON.
--- NOTE | 2019-05-29 11:43 | NUR ---
AM GROUP PT ATTENDED AND PARTICIPATED IN ALL MORNING GROUP ACTIVITIES. PT WAS QUIET AND ON TASK. PT IS PLEASANTLY CONFUSED. PT IS SET TO BE DISCHARGED FROM THE UNIT THIS AFTERNOON.
--- NOTE | 2019-05-29 11:49 | NUR ---
NURSE TO NURSE REPORT GIVEN TO [facility] AT [facility]. VERIFIED [place] WILL NOT NEED PHYSICAL SCRIPTS FOR PT, DISCHARGE MEDICATION LIST WILL BE ENOUGH FOR THEM TO OBTAIN PT'S MEDICATIONS PT IS NOT PRESCRIBED ANY CONTROLLED SUBSTANCES. ALL QUESTIONS ANSWERED. UNIT PHONE NUMBER PROVIDED SHOULD THEY REQUIRE ANY ADDITIONAL INFORMATION.
--- NOTE | 2019-05-29 12:18 | NUR ---
PT DISCHARGED AT THIS TIME TO [facility] VIA PRIVATE VEHICLE WITH PT'S DAUGHTER MIA. ALL DISCHARGE INSTRUCTIONS WERE REVIEWED WITH MIA/SUHAIL PRIOR TO DISCHARGE WITH STATED UNDERSTANDING OF ALL. ALL PERSONAL BELONGINGS WERE SENT WITH THE PT. PT LEFT THE UNIT IN STABLE CONDITION AT 1218 VIA WHEELCHAIR ESCORT BY [facility].
--- NOTE | 2019-05-29 15:51 | NUR ---
Patient discharged to [facility] today. Follow-up will be with Dr Chowdhury, visiting psychiatrist. While at [facility], pt was calm and cooperative. She did voice delusions but remained pleasantly confused. Pt did participate in programming as she was able.
== END 2019-05-29 12:21 | DRG 883 ==
LOC: 3N 13:22
PROVIDERS: ADMIT Psychiatry & Neurology Psychiatry
DX: F63.81 Intermittent explosive disorder (principal); F33.2 Major depressive disorder, recurrent severe without psychotic features; F23 Brief psychotic disorder; G30.9 Alzheimer's disease, unspecified; F02.80 Dementia in other diseases classified elsewhere, unspecified severity, without behavioral disturbance, psychotic disturbance, mood disturbance, and anxiety; E87.8 Other disorders of electrolyte and fluid balance, not elsewhere classified; E83.41 Hypermagnesemia; E78.5 Hyperlipidemia, unspecified; I10 Essential (primary) hypertension; F41.9 Anxiety disorder, unspecified; Z90.49 Acquired absence of other specified parts of digestive tract; Z90.710 Acquired absence of both cervix and uterus; Z82.49 Family history of ischemic heart disease and other diseases of the circulatory system; Z79.899 Other long term (current) drug therapy